=== PATIENT | male | born 1940 | race Asian ===

== ENCOUNTER 2022-10-12 16:02 | Emergency (ER) | payer OTHER, MEDICAID ==
[~2022-10-12] VITALS: Ht 170.2 cm; Wt 78.9 kg
[~2022-10-12 16:02] MED LIST: [UNRECOGNIZED DRUG - CODE]
[2022-10-12 16:09] VITALS: BP 128/72
[2022-10-12 16:54] LABS: BASOPHILS % (AUTO) 0.6 % (0.0-2.0); EOSINOPHILS # (AUTO) 0.1 K/uL (0-0.4); EOSINOPHILS % (AUTO) 1.4 % (0.0-4.0); HEMATOCRIT 36.2 % (36-52); HEMOGLOBIN 12.2 g/dL (12.0-18.0); LYMPHOCYTES # (AUTO) 1.6 K/uL (2.0-11.5); LYMPHOCYTES % (AUTO) 20.6 % (20.5-51.1); MEAN CORPUSCULAR HEMOGLOBIN 32 pg (27-31); MEAN CORPUSCULAR HGB CONC 34 g/dL (33-37); MEAN CORPUSCULAR VOLUME 95.5 fL (80-94); MONOCYTES # (AUTO) 0.5 K/uL (0.8-1.0); MONOCYTES % (AUTO) 6.8 % (1.7-9.3); NEUTROPHILS # (AUTO) 5.4 K/uL (1.8-7.7); NEUTROPHILS % (AUTO) 70.6 % (42.2-75.2); PLATELET COUNT (AUTO) 179 K/uL (140-450); RED BLOOD CELL COUNT(AUTO) 3.79 MIL/uL (4.20-6.10); RED CELL DISTRIBUTION WIDTH 12.9 % (11.6-13.7); WHITE BLOOD COUNT (AUTO) 7.7 K/uL (4.8-10.8)
--- NOTE | 2022-10-12 17:27 | NUR ---
82 Y/O MALE BIBA FROM BUS STOP C/O CHEST PAIN TODAY X10 AM, PER EMS GIVEN ASA 324 AND NITRO WITH DECREASE IN PAIN FROM 7/10 TO 0/10. DENIES NVD, BARRAZA,SOB. NKA PMH: HTN, DM
[2022-10-12 17:32] LABS: PROTHROMBIN TIME 10.7 secs (10.8-13.4)
[2022-10-12 17:39] LABS: ALBUMIN 3.9 g/dL (3.4-5.0); ANION GAP 15.1 (8-16); ASPARTATE AMINOTRANSFERASE 13 U/L (15-37); CARBON DIOXIDE 26.2 mmol/L (21-32); CHLORIDE 103 mmol/L (98-107); CREATININE 2.3 mg/dL (0.6-1.3); GLUCOSE 143 mg/dL (74-106); POTASSIUM 4.3 mmol/L (3.5-5.1); SODIUM SERUM 140 mmol/L (136-145); TOTAL BILIRUBIN 0.5 mg/dL (0.0-1.0); UREA NITROGEN, BLOOD 20 mg/dL (7-18)
--- NOTE | 2022-10-12 19:30 | NUR ---
82YR OLD MALE BIB CP DENIES SOB PT IS A&OX4. DENIES CP AT THIS TIME. SKIN WARM AND DRY. RESP EVEN AND UNLABORED. DENIES V/N. PT ON BEDSIDE PORTTAL MONITOR. BED AT LOWEST POSITION SIDE RAILS UP X2 NKDA
[2022-10-12 19:43] VITALS: BP 102/47
--- NOTE | 2022-10-12 23:04 | NUR ---
PT BEING TRANSFERED TO [facility] . PT IS AWARE . FOOD PROVIDED FOR PT . SITTING ON SIDE OF BED. DENIES CP OR SOB
--- NOTE | 2022-10-12 23:10 | NUR ---
REPORT CALLED TO CRISTOBAL RIVERA AT [facility] . [facility] ETA WITHIN THE HOUR
--- NOTE | 2022-10-12 23:33 | NUR ---
[facility] AT BEDSIDE TO [place]. PT FAMILY REQUESTING TO AMA PT STATING "THAT HOSPITAL IS TOO FAR FOR HIM." DR. VICTORIA INFORMED.
--- NOTE | 2022-10-13 00:02 | NUR ---
Patient does not wish to proceed with medical care recommended by DR VICTORIA. Patient given information related to possible complications, up to and including , which could occur as a result of leaving hospital at this time. Patient verbalizes understanding of risks involved leaving against medical advice. Patient has signed AMA form.
--- NOTE | 2022-10-13 00:03 | NUR ---
PT FAMILY IS HERE TO ASSIST[employer] PT . PT SIGNED OUT AMA. FACILITIY MADE AWARE
--- NOTE | 2022-10-13 00:13 | NUR ---
The patient's care was reviewed and supervised by Pratima Chavez RN.
== END 2022-10-12 17:27 | disposition left against medical advice (07) ==
LOC: MED 16:02
DX: I20.9 Angina pectoris, unspecified (principal); N17.9 Acute kidney failure, unspecified; R07.9 Chest pain, unspecified; Z20.822 Contact with and (suspected) exposure to COVID-19; I25.2 Old myocardial infarction; E11.9 Type 2 diabetes mellitus without complications; I10 Essential (primary) hypertension; F17.210 Nicotine dependence, cigarettes, uncomplicated; Z86.73 Personal history of transient ischemic attack (TIA), and cerebral infarction without residual deficits; Z79.82 Long term (current) use of aspirin
CPT/HCPCS: 36415; 71045; 80053; 84484; 85025; 85610; 85730; 87426; 93005; 99285; Q0092